=== PATIENT | male | born 1980 | race Caucasian/White ===

== ENCOUNTER 2018-05-21 20:05 | Emergency (ER) | payer OTHER ==
[~2018-05-21] VITALS: Ht 172.7 cm; Wt 90.7 kg
[2018-05-21] MEDS ORDERED: HYDROCODONE/APAP 5/325MG 1 EACH TABLET ONE (23:38)
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
[2018-05-21] MEDS: HYDROCODONE/APAP 5/325MG 1 EACH TABLET PO ONE (23:41)
--- NOTE | 2018-05-22 00:17 | NUR ---
PT BROUGHT BY RADIOLOGY FOR CT
--- NOTE | 2018-05-22 01:00 | NUR ---
PT RESTING COMFORTABLY. VITAL SIGNS STABLE. NO ACUTE DISTRESS NOTED. NO NEURO DEFICITS NOTED. WILL CONTINUE TO MONITOR.
--- NOTE | 2018-05-22 01:56 | NUR ---
Patient discharged to home in stable condition. Written and verbal after care instructions given. Patient verbalizes understanding of instruction. Pt ambulatory with a steady gait. Instructed not to drive, left with friends
[2018-05-22 02:01] VITALS: BP 134/79
== END 2018-05-22 02:02 | disposition home or self-care (01) ==
LOC: ER 20:19
DX: S16.1XXA Strain of muscle, fascia and tendon at neck level, initial encounter (principal); M50.30 Other cervical disc degeneration, unspecified cervical region; R51 Headache; V43.52XA Car driver injured in collision with other type car in traffic accident, initial encounter; Y93.89 Activity, other specified; Y92.413 State road as the place of occurrence of the external cause; Y99.8 Other external cause status
CPT/HCPCS: 70450-TC; 72125-TC; L0172

== ENCOUNTER 2019-04-27 14:39 | Emergency (ER) | payer OTHER ==
[~2019-04-27] VITALS: Ht 180.3 cm; Wt 83.9 kg
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
--- NOTE | 2019-04-27 14:54 | NUR ---
XRAY AT BEDSIDE
--- NOTE | 2019-04-27 15:40 | NUR ---
Patient discharged to home in stable condition. Written and verbal after care instructions given. Patient verbalizes understanding of instruction and RX. PT ambulatory with a steady gait.
[2019-04-27 15:42] VITALS: BP 134/74
== END 2019-04-27 15:42 | disposition home or self-care (01) ==
LOC: ER 14:44
DX: M79.642 Pain in left hand (principal); V49.49XA Driver injured in collision with other motor vehicles in traffic accident, initial encounter; Y93.89 Activity, other specified; Y92.488 Other paved roadways as the place of occurrence of the external cause; Y99.8 Other external cause status
CPT/HCPCS: 73130-TC

== ENCOUNTER 2019-05-25 22:39 | Emergency (ER) | payer OTHER ==
[~2019-05-25] VITALS: Ht 175.3 cm; Wt 90.3 kg
[2019-05-25] MEDS ORDERED: KETOROLAC TROMETHAMINE INJ 60 MG/2 ML VIAL IM ONE (23:00)
[2019-05-25] MEDS ORDERED: CYCLOBENZAPRINE 10 MG TABLET PO ONE (23:00)
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
[2019-05-25] MEDS ORDERED: KETOROLAC TROMETHAMINE INJ 30 MG/ML VIAL ONE ×2 (23:18→23:19)
[2019-05-25] MEDS ORDERED: CYCLOBENZAPRINE 10 MG TABLET ONE (23:18)
[2019-05-26 00:09] VITALS: BP 117/68
--- NOTE | 2019-05-26 00:09 | NUR ---
Patient discharged to home in stable condition. rx and Written and verbal after care instructions given. Patient verbalizes understanding of instruction.
== END 2019-05-26 00:10 | disposition home or self-care (01) ==
LOC: ER 22:44
DX: M54.5 Low back pain (principal)
CPT/HCPCS: 96372; 99283; J1885 ×2